=== PATIENT | female | born 1950 | race Caucasian/White ===

== ENCOUNTER 2021-12-06 09:50 | Outpatient (CLI) | payer MEDICARE, BC | END 2021-12-06 09:51 | disposition home or self-care (01) | LOC: CSHCT 09:50 | PROVIDERS: ATTEND Internal Medicine | DX: Z12.2 Encounter for screening for malignant neoplasm of respiratory organs (principal); Z87.891 Personal history of nicotine dependence; J43.9 Emphysema, unspecified | CPT/HCPCS: 71271; 94060; 94726; 94729; 94760 ==